=== PATIENT | female | born 1975 | race Caucasian/White ===

== ENCOUNTER 2016-08-10 09:26 | Outpatient (CLI) | payer BC ==
[~2016-08-10] VITALS: Ht 172.7 cm; Wt 69.5 kg
[2016-08-10] MEDS ORDERED: IRON SUCROSE 25 MG in NS 50 ML IV ONE (11:00)
[2016-08-10] MEDS ORDERED: IRON SUCROSE 175 MG in NS 250 ML IV ONE (12:00)
== END 2016-08-10 13:00 | disposition home or self-care (01) ==
LOC: M INFU 09:26
PROVIDERS: ATTEND Internal Medicine
DX: D50.9 Iron deficiency anemia, unspecified (principal)
CPT/HCPCS: 96365; 96366; J1756

== ENCOUNTER 2016-08-15 09:58 | Outpatient (CLI) | payer BC ==
[~2016-08-15] VITALS: Ht 172.7 cm; Wt 69.5 kg
[2016-08-15] MEDS ORDERED: IRON SUCROSE 25 MG in NS 50 ML IV ONE (10:15)
[2016-08-15] MEDS ORDERED: IRON SUCROSE 175 MG in NS 250 ML IV ONE (11:15)
== END 2016-08-15 14:05 | disposition home or self-care (01) ==
LOC: M INFU 09:58
PROVIDERS: ATTEND Internal Medicine
DX: D50.9 Iron deficiency anemia, unspecified (principal)
CPT/HCPCS: 96365; J1756

== ENCOUNTER 2016-08-17 10:38 | Outpatient (CLI) | payer BC ==
[~2016-08-17] VITALS: Ht 172.7 cm; Wt 69.5 kg
[2016-08-17] MEDS ORDERED: IRON SUCROSE 25 MG in NS 50 ML IV ONE (11:00)
[2016-08-17] MEDS ORDERED: IRON SUCROSE 175 MG in NS 250 ML IV ONE (12:00)
[2016-08-17] MEDS ORDERED: ONDANSETRON 4MG/2ML VIAL (J2405) As Ordered ONE (13:02)
[2016-08-17] MEDS ORDERED: ONDANSETRON 4MG/2ML VIAL (J2405) IV ONE (13:15)
== END 2016-08-17 14:40 | disposition home or self-care (01) ==
LOC: M INFU 10:38
PROVIDERS: ATTEND Internal Medicine
DX: D50.9 Iron deficiency anemia, unspecified (principal); R53.83 Other fatigue; T45.4X5A Adverse effect of iron and its compounds, initial encounter
CPT/HCPCS: 96365; J1756; J2405

== ENCOUNTER 2016-08-22 10:20 | Outpatient (CLI) | payer BC ==
[2016-08-22] MEDS ORDERED: IRON SUCROSE 25 MG in NS 50 ML IV ONE (10:30)
[2016-08-22] MEDS ORDERED: ONDANSETRON 4MG/2ML VIAL (J2405) IV ONE (10:30)
[2016-08-22] MEDS ORDERED: diphenhydrAMINE 25 MG CAP PO ONE (10:30)
[2016-08-22] MEDS ORDERED: ACETAMINOPHEN TAB 650MG DOSE (2X325MG) PO ONE (10:30)
[2016-08-22] MEDS ORDERED: IRON SUCROSE 175 MG in NS 250 ML IV ONE (11:45)
== END 2016-08-22 16:40 | disposition home or self-care (01) ==
LOC: M INFU 10:20
PROVIDERS: ATTEND Internal Medicine
DX: D50.9 Iron deficiency anemia, unspecified (principal); R53.83 Other fatigue
CPT/HCPCS: 96365; 96366; J1756; J2405

== ENCOUNTER 2016-08-24 10:21 | Outpatient (CLI) | payer BC ==
[~2016-08-24] VITALS: Ht 172.7 cm; Wt 69.5 kg
[2016-08-24] MEDS ORDERED: diphenhydrAMINE 25 MG CAP As Ordered ONE (10:55)
[2016-08-24] MEDS ORDERED: ONDANSETRON 4MG/2ML VIAL (J2405) As Ordered ONE (10:55)
[2016-08-24] MEDS ORDERED: ACETAMINOPHEN 325 MG TAB As Ordered ONE (10:56)
[2016-08-24] MEDS ORDERED: ONDANSETRON 4MG/2ML VIAL (J2405) IV ONE (11:00)
[2016-08-24] MEDS ORDERED: IRON SUCROSE 25 MG in NS 50 ML IV ONE (11:00)
[2016-08-24] MEDS ORDERED: ACETAMINOPHEN TAB 650MG DOSE (2X325MG) PO ONE (11:00)
[2016-08-24] MEDS ORDERED: diphenhydrAMINE 25 MG CAP PO ONE (11:00)
[2016-08-24] MEDS ORDERED: IRON SUCROSE 175 MG in NS 250 ML IV ONE (12:00)
== END 2016-08-24 16:15 | disposition home or self-care (01) ==
LOC: M INFU 10:21
PROVIDERS: ATTEND Internal Medicine
DX: D50.9 Iron deficiency anemia, unspecified (principal); R53.83 Other fatigue; T45.4X5A Adverse effect of iron and its compounds, initial encounter
CPT/HCPCS: 96365; 96366; J1756; J2405

== ENCOUNTER 2016-08-31 08:57 | Outpatient (CLI) | payer BC ==
[2016-08-31] MEDS ORDERED: IRON SUCROSE 25 MG in NS 50 ML IV ONE (09:15)
[2016-08-31] MEDS ORDERED: ACETAMINOPHEN TAB 650MG DOSE (2X325MG) PO ONE (09:15)
[2016-08-31] MEDS ORDERED: ONDANSETRON 4MG/2ML VIAL (J2405) IV ONE (09:15)
[2016-08-31] MEDS ORDERED: diphenhydrAMINE 25 MG CAP PO ONE (09:15)
[2016-08-31] MEDS ORDERED: IRON SUCROSE 175 MG in NS 250 ML IV ONE (10:15)
== END 2016-08-31 14:30 | disposition home or self-care (01) ==
LOC: M INFU 08:57
PROVIDERS: ATTEND Internal Medicine
DX: D50.9 Iron deficiency anemia, unspecified (principal); R53.83 Other fatigue; T45.4X5A Adverse effect of iron and its compounds, initial encounter
CPT/HCPCS: 96365; 96366; J1756; J2405

== ENCOUNTER → 2020-07-18 | Outpatient (CLI) | payer BC | LOC: M LABSMTC 11:22 | PROVIDERS: ATTEND Pediatrics | DX: Z20.828 Contact with and (suspected) exposure to other viral communicable diseases (principal) ==